=== PATIENT | male | born 1945 | race Caucasian/White ===

== ENCOUNTER 2023-12-31 11:47 | Emergency (ER) | payer MEDICARE, BC, SELFPAY ==
[2023-12-31 12:04] VITALS: BP 106/75
--- NOTE | 2023-12-31 14:07 | ED.MUSCINJ ---
HPI-Injury
General
Chief Complaint: Musculo-Skeletal Complaint
Source: patient
Exam Limitations: none
Time Seen by Provider: 12/31/23 13:50
History of Present Illness-Injury
Initial Injury comments:
78-year-old male presents complaining of persistent right-sided neck pain over the past several days. Hurts to move his neck hurts to lay flat. No associated chest pain or shortness of breath. Does not hurt with deep breathing. Pain does not
radiate down the arm. In the past she has had success using a muscle relaxer however he tried this over the last several days and has not had great relief. No known injury. No numbness or tingling. No other complaints at this time
Past History
Past History
ED Past Medical History: None
ED Past Surgical History: None
Phy Exam
Physical Exam
Physical Exam:
General: Well-appearing male no acute respiratory distress
HEENT: Normocephalic atraumatic neck is supple no adenopathy
Heart: Regular rate and rhythm no murmurs
Lungs: Clear no wheeze
Musculoskeletal exam: Tender over the right trapezius area. Good range of motion cervical spine. Good range of motion to the shoulders
Skin is intact without rash
MDM/Problems Addressed
Differential Diagnosis Includes:
Right-sided neck pain. Do not suspect radiculopathy. No central discomfort to suggest bony abnormality. Do suspect cervical strain. Not pleuritic do not suspect dissection or PE. Recommended a steroid as an anti-inflammatory and given muscle
relaxer as well as warm compress. Stable for discharge and follow-up with family doctor
*Critical Care Note
Total Time (30-74mins, 75-104mins- exclusive of procedures): Not Applicable
ED Attending Note
-
Portions of this chart may have been created with voice recognition software.� Occasional wrong word or��sound alike� substitutions may have occurred due to the inherent limitations of voice recognition software.
Discharge Plan
Departure
Patient Disposition: Home (Routine Discharge)
Date of Disposition: 12/31/23
Time of Disposition: 14:29
Patient with high blood pressure during this ER visit?: No
Discharge Problem:
Cervical strain
Instructions: Muscle and Bone Pain (DC)
Prescriptions:
New
prednisone 10 mg Tablet
See Rx Instructions .ROUTE .COMPLEX Qty: 30 0RF
Rx Instructions:
Take By Mouth:
40 mg daily x3 days, 30 mg daily x3 days,
20 mg daily x3 days, 10 mg daily x3 days.
cyclobenzaprine 10 mg tablet
10 mg PO Q8H PRN (Reason: spasm) Qty: 10 0RF
No Action
atorvastatin 40 MG tablet
40 mg PO DAILY
cetirizine 10 MG tablet
10 mg PO DAILY
famotidine 40 MG tablet
40 mg PO DAILY
aspirin 81 MG tablet,delayed release (DR/EC)
1 PO DAILY
propranolol 40 MG tablet
40 mg PO TID
paroxetine HCl 30 MG tablet
15 mg PO DAILY
diphenhydramine HCl [Banophen] 25 MG capsule
25 mg PO HSPRN PRN (Reason: sleep)
geriatric naxddgza-wahl-stui [Spectravite Senior] 1 EACH tablet
1 ea PO DAILY
coenzyme [id number]-[id number] E [Co Q-10 (with Vit E)] 1 EACH capsule
1 PO DAILY
omega 5-fcs-sqx-fish oil 1 EACH capsule
1 ea PO DAILY
vit D3-folic [id number]-[id number]-B12 [Folgard] 1 EACH tablet
1 ea PO DAILY
melatonin 10 MG capsule
10 mg PO HS
L.acidoph, paracasei,B. lactis 1 EACH capsule
1 ea PO DAILY
Referrals:
Eduard Alcaraz CRNP [Family Provider] -
Interventions
Interventions:
*ED COVID-19 Vaccine History Last Done: 12/31/23 12:04
Discharge Date and Time
Print Language: ARMENIAN
== END 2023-12-31 15:00 | disposition home or self-care (01) ==
LOC: EMR 11:47
PROVIDERS: EMERGENCY PHYSICIAN Emergency Medicine; FAMILY PHYSICIAN Registered Nurse
DX: S16.1XXA Strain of muscle, fascia and tendon at neck level, initial encounter (principal); X58.XXXA Exposure to other specified factors, initial encounter
CPT/HCPCS: 99283

== ENCOUNTER 2024-06-26 14:19 | Emergency (ER) | payer MEDICARE, BC, SELFPAY ==
[2024-06-26 14:27] VITALS: BP 148/88
--- NOTE | 2024-06-26 14:34 | ED.GENMED ---
ED Provider Triage
<Obdulia Gomez PA-C - Last Filed: 06/26/24 14:38>
-
Patient seen by provider in Triage?: Seen in Triage
Attestation: A medical screening examination has been initiated by a qualified medical provider. Based on the assessment performed at this time, it has been determined that an emergent medical condition may exist and the patient has been informed
that further medical evaluation and possible additional diagnostic testing may be needed.
HPI: 78yoM here with intermittent chest pain x 1-2 weeks. Feels like a light pinching pain. Intermittent, lasts 30 seconds-1 minute at a time, seems to occur with lying flat. Radiates down L arm. Follows with Dr. Bond.
GENERAL: Alert , in no apparent distress
EYE: No visual abnormalities.
NECK: Trachea midline
ENT: No visible abnormalities.
LUNGS: No acute respiratory distress
NEUROLOGICAL: Alert and oriented
SKIN: Skin intact. No visible changes.
MUSCULOSKELETAL: Moving extremities normally
PSYCH: Normal and appropriate interaction.
This is a medical evaluation conducted in person to initiate diagnostic evaluation and provide initial therapeutics. Please see further documentation by the treating clinician.
No ischemic changes on EKG. Cardiac labs and CXR ordered.
History of Present Illness
<Obdulia Gomez PA-C - Last Filed: 06/26/24 14:38>
General
Chief Complaint: Chest Pain
Time Seen by Provider: 06/26/24 16:20
<Blas Emmanuel DO - Last Filed: 06/26/24 16:51>
History of Present Illness
History of Present Illness:
TIME OF INITIAL ENCOUNTER: 4:20 PM
HPI: The patient presents due to chest 'twinges' that last for seconds at a time over the last 2 weeks. This is not associated with exertion. He never had diaphoresis. He was never short of breath. He never had chest pressure. He called
[facility] office who told him to come in here for further evaluation. He currently has no pain or discomfort.
EXAM:
GENERAL: Well appearing in no distress
HEENT: Moist oral mucosa
CARDIOVASCULAR: No murmurs, normal heart rate, regular rhythm, No chest wall tenderness
PULMONARY: No respiratory distress, breath sounds are slightly diminished equally
ABDOMEN: Soft with no peritoneal signs, no tenderness
NEUROLOGIC: Excellent strength all extremities, no coordination deficits
PSYCHIATRIC: Appropriate mental status, normal insight and judgement
EXTREMITIES: Nontender, trace bilateral lower extremity edema, moves all extremities equally
SKIN: No rash, no lesions slightly diminished equally
NUMBER AND COMPLEXITY OF PROBLEMS ADDRESSED AT THE ENCOUNTER
� Chronic conditions affecting care: Hyperlipidemia, fatty liver
� Acute Exacerbation and/or Progression of Chronic Illness: This is an acute problem
� Differential Diagnosis includes: GERD (patient is already on omeprazole and famotidine), ACS very unlikely, chest wall strain/muscular etiology
AMOUNT AND/OR COMPLEXITY OF DATA TO BE REVIEWED AND ANALYZED
� I performed an independent evaluation of and my interpretation is:
EKG: Sinus 72, no acute ST abnormality
CT:
X-rays:
Laboratory Studies: White count normal, hemoglobin 12.7, chemistries are unremarkable and troponin less than 0.012
Other:
� Review of other/old records: The patient was seen here in 2021 with iron deficiency anemia and had an endoscopy and a colonoscopy at that time
� Clinical information was obtained by an independent historian: None needed
� Prescriptions/Medications Considered but not given:
� Further testing considered but not performed:
RISK OF COMPLICATIONS AND/OR MORBIDITY OR MORTALITY OF PATIENT MANAGEMENT
� Social determinants of health affecting care: Lives at home
� Discussion with other providers:
� Escalation of care including admission/observation vs risk of discharge considered: The patient's chest feeling is more described as a 'twinge' as opposed to any pressure or pain. EKG and troponin unremarkable. He is to
follow with PMD and cardiology as outpatient.
ANY OTHER UPDATES:
Past History
<Obdulia Gomez PA-C - Last Filed: 06/26/24 14:38>
Past History
ED Past Medical History: None
ED Past Surgical History: None
Phy Exam
<Blas Emmanuel, DO - Last Filed: 06/26/24 16:51>
Physical Exam
Physical Exam:
See HPI
Scores
<Blas Emmanuel, DO - Last Filed: 06/26/24 16:51>
Heart Score for Chest Pain Patients
STEMI patient?: Not applicable
Course
<Obdulia Gomez PA-C - Last Filed: 06/26/24 14:38>
Orders/Labs/Results
Orders:
Orders
06/26/24 14:21
ECG [Electrocardiogram (*1)] Urgent
Reason for Study: Chest Pain
EKG- Treatment ONCE
06/26/24 14:37
CR Chest - 2 Views Urgent
Comment:
Reason For Exam: CP
06/26/24 14:49
Complete Blood Count/With Diff Urgent
Comprehensive Metabolic Panel Urgent
Troponin I Urgent
Abnormal Lab Results
06/26/24
14:49
RBC 4.28 L 10^6/uL
(4.70-6.10)
Hgb 12.7 L g/dL
(13.0-18.0)
Hct 37.9 L %
(39.0-52.0)
Creatinine 0.6 L mg/dL
(0.7-1.3)
06/26/24 14:49
06/26/24 14:49
Vital Signs
Initial and Last Documented VS:
Initial Vital Signs
Temp Pulse Resp BP Pulse Ox
36.6 C 75 18 148/88 99
06/26/24 14:27 06/26/24 14:27 06/26/24 14:27 06/26/24 14:27 06/26/24 14:27
Last Documented Vital Signs
Temp Pulse Resp BP Pulse Ox
36.6 C 70 20 141/84 100
06/26/24 14:27 06/26/24 16:41 06/26/24 16:41 06/26/24 16:41 06/26/24 16:41
<Blas Emmanuel, DO - Last Filed: 06/26/24 16:51>
Orders/Labs/Results
Orders:
Orders
06/26/24 14:21
ECG [Electrocardiogram (*1)] Urgent
Reason for Study: Chest Pain
EKG- Treatment ONCE
06/26/24 14:37
CR Chest - 2 Views Urgent
Comment:
Reason For Exam: CP
06/26/24 14:49
Complete Blood Count/With Diff Urgent
Comprehensive Metabolic Panel Urgent
Troponin I Urgent
Abnormal Lab Results
06/26/24
14:49
RBC 4.28 L 10^6/uL
(4.70-6.10)
Hgb 12.7 L g/dL
(13.0-18.0)
Hct 37.9 L %
(39.0-52.0)
Creatinine 0.6 L mg/dL
(0.7-1.3)
06/26/24 14:49
06/26/24 14:49
Vital Signs
Initial and Last Documented VS:
Initial Vital Signs
Temp Pulse Resp BP Pulse Ox
36.6 C 75 18 148/88 99
06/26/24 14:27 06/26/24 14:27 06/26/24 14:27 06/26/24 14:27 06/26/24 14:27
Last Documented Vital Signs
Temp Pulse Resp BP Pulse Ox
36.6 C 70 20 141/84 100
06/26/24 14:27 06/26/24 16:41 06/26/24 16:41 06/26/24 16:41 06/26/24 16:41
<Blas Emmanuel DO - Last Filed: 06/26/24 16:51>
*Critical Care Note
Total Time (30-74mins, 75-104mins- exclusive of procedures): Not Applicable
ED Attending Note
<Obdulia Gomez PA-C - Last Filed: 06/26/24 14:38>
-
Portions of this chart may have been created with voice recognition software.� Occasional wrong word or��sound alike� substitutions may have occurred due to the inherent limitations of voice recognition software.
Discharge Plan
Departure
Patient Disposition: Home (Routine Discharge)
Date of Disposition: 06/26/24
Time of Disposition: 16:46
Patient with high blood pressure during this ER visit?: Yes
Discharge Problem:
Chest pain
Instructions: Chest Pain DCA Follow Up
Prescriptions:
No Action
atorvastatin 40 MG tablet
40 mg PO DAILY
cetirizine 10 MG tablet
10 mg PO DAILY
famotidine 40 MG tablet
40 mg PO DAILY
aspirin 81 MG tablet,delayed release (DR/EC)
1 PO DAILY
propranolol 40 MG tablet
40 mg PO TID
paroxetine HCl 30 MG tablet
15 mg PO DAILY
diphenhydramine HCl [Banophen] 25 MG capsule
25 mg PO HSPRN PRN (Reason: sleep)
geriatric hmrogykj-ggqy-shwv [Spectravite Senior] 1 EACH tablet
1 ea PO DAILY
coenzyme L64-efigmer E [Co Q-10 (with Vit E)] 1 EACH capsule
1 PO DAILY
omega 8-kan-qao-fish oil 1 EACH capsule
1 ea PO DAILY
vit D3-folic cavs-Z9-T5-B12 [Folgard] 1 EACH tablet
1 ea PO DAILY
melatonin 10 MG capsule
10 mg PO HS
LPardeepacidoph,bhanuasei,B.animalis 1 EACH capsule
1 ea PO DAILY
prednisone 10 mg Tablet
See Rx Instructions .ROUTE .COMPLEX Qty: 30 0RF
Rx Instructions:
Take By Mouth:
40 mg daily x3 days, 30 mg daily x3 days,
20 mg daily x3 days, 10 mg daily x3 days.
cyclobenzaprine 10 mg tablet
10 mg PO Q8H PRN (Reason: spasm) Qty: 10 0RF
Referrals:
Robert Bond MD [Active] - Follow up in 2-3 days
Eduard Alcaraz CRNP [Family Provider] -
Activity Restrictions/Additional Instructions:
EKG and cardiac blood work shows no sign of heart attack. Follow-up with Dr. Bond. Return here if worse or other concerns. Chest x-ray was clear.
Interventions
Interventions:
*Risk Screen - Suicide Last Done: 06/26/24 14:27
*General Assessment Last Done: 06/26/24 14:27
*Neglect/Abuse Screening Last Done: 06/26/24 14:27
ED- Fall Risk Assessment Last Done: 06/26/24 16:43
*ED COVID-19 Vaccine History Last Done: 06/26/24 14:27
ED- Cardiac Assessment Last Done: 06/26/24 16:43
Discharge Date and Time
Print Language: PASHTO
[2024-06-26 15:06] LABS: % Basophils 0.8 % (0-2); % Eosinophils 2.7 % (0-6); % Immature Granulocytes 0.2 % (0-0.5); % Lymphocytes 32.3 % (20.5-51.1); Absolute Eosinophils 0.1 10^3/uL (0-0.7); Absolute Lymphocytes 1.7 10^3/uL (1.2-3.4); Absolute Monocytes 0.4 10^3/uL (0.1-0.6); Absolute Neutrophils 2.9 10^3/uL (1.4-6.5); Hematocrit 37.9 % (39.0-52.0); Hemoglobin 12.7 g/dL (13.0-18.0); Mean Corp Hgb Conc. 33.5 g/dL (33.0-37.0); Mean Corpuscular Hgb 29.7 pg (27.0-31.0); Mean Corpuscular Volume 88.6 fL (80.0-94.0); Mean Platelet Volume 9.8 fL (7.4-10.4); Nucleated Red Blood Cells % 0 % (-); Platelet Count 200 10^3/uL (130-400); Red Blood Cell Count 4.28 10^6/uL (4.70-6.10); Red Cell Dist. Width 12.3 % (11.5-14.5); White Blood Cell Count 5.1 10^3/uL (4.8-10.8)
[2024-06-26 15:21] LABS: ALT (SGPT) 15 U/L (0-50); AST (SGOT) 28 U/L (17-59); Albumin 4.6 g/dl (3.5-5.0); Alkaline Phosphatase 103 U/L (38-126); Blood Urea Nitrogen 17 mg/dl (9-20); Calcium 9.6 mg/dl (8.4-10.2); Carbon Dioxide 27 mmol/L (22-30); Chloride 100 mmol/L (98-107); Glucose 98 mg/dl (70-99); Potassium 4.1 mmol/L (3.5-5.1); Sodium 137 mmol/L (135-145); Total Bilirubin 0.4 mg/dl (0.2-1.3); Total Protein 7.1 g/dl (6.3-8.2); eGFR > 60.00
[2024-06-26 15:30] LABS: Troponin I < 0.012 ng/ml
[2024-06-26 16:41] VITALS: BP 141/84
== END 2024-06-26 16:55 | disposition home or self-care (01) ==
LOC: EMR 14:19
PROVIDERS: Emergency Medicine; EMERGENCY PHYSICIAN Emergency Medicine; FAMILY PHYSICIAN Registered Nurse
DX: R07.9 Chest pain, unspecified (principal); E78.5 Hyperlipidemia, unspecified; K76.0 Fatty (change of) liver, not elsewhere classified
CPT/HCPCS: 99285; 71046; 80053; 84484; 85025; 93005

== ENCOUNTER → 2024-06-30 11:56 | Outpatient (REF) | payer MEDICARE, BC, SELFPAY | LOC: RAD 11:56 | PROVIDERS: ATTENDING PHYSICIAN Registered Nurse | DX: M54.12 Radiculopathy, cervical region (principal) | CPT/HCPCS: 72040 ==

== ENCOUNTER → 2024-09-17 08:53 | Outpatient (REF) | payer MEDICARE, BC, SELFPAY | LOC: MRI 3T 08:53 | PROVIDERS: ATTENDING PHYSICIAN Registered Nurse | DX: M54.12 Radiculopathy, cervical region (principal) | CPT/HCPCS: 72141 ==

== ENCOUNTER → 2025-03-06 14:22 | Outpatient (REF) | payer MEDICARE, BC, SELFPAY | LOC: RAD 14:22 | PROVIDERS: ATTENDING PHYSICIAN Urology; FAMILY PHYSICIAN Registered Nurse | DX: N20.0 Calculus of kidney (principal) | CPT/HCPCS: 76775 ==